=== PATIENT | female | born 1945 | race Caucasian/White ===

== ENCOUNTER 2016-12-20 20:20 | Inpatient (IN) | payer MEDICARE, OTHER ==
[~2016-12-20] VITALS: Ht 149.9 cm; Wt 72.1 kg
--- NOTE | ~2016-12-20 | ECH ---
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 The estimated left ventricular ejection fraction is 60%. Diastolic assessment reveals Grade I diastolic dysfunction. Informed consent was obtained, bubble study was done, there is no evidence for a PFO or ASD. Mild tricuspid regurgitation by color Doppler. There is moderate pulmonary hypertension. The pulmonary pressure (RVSP) is 52 mmHg. Procedure Type of Study TTE procedure:Echo Complete SF. Procedure Date Date: 12/23/2016 Start: 08:25 AM Technical Quality: Adequate visualization Indications:Abnormal ECG, CVA, Hypertension and Coronary artery disease. Additional Indications:History of stent Appropriate Use Criteria: 9 Height: 59 inches Weight: 156 pounds BSA: 1.66 m Rhythm: NSR HR: 69 bpm BP: 140/57 mmHg M-Mode/2D Measurements LV Diastolic Dimension: 4.3 cm LV Systolic Dimension: 3.5 cm LV Septum Diastolic: 0.87 cm LV PW Diastolic: 0.87 cm AO Root Dimension: 2.98 cm Cardiac Output: 6.8 l/min LA Dimension: 3.73 cm Cardiac Index: 4.1 l/min*m RV Diastolic Dimension: 3.55 cm LA volume index: 28 ml/m LVOT: 2.06 cm LVOT VTI: 29.6 cm RV Base: 3.5 cm LV Stroke volume: 98.6 ml RV Mid: 2.8 cm LV Stroke volume index: 59.4 ml/m TAPSE: 2.9 cm TDI-S': 18 cm/s Doppler Measurements AV Peak Velocity: 1.27 m/s MV Peak E-Wave: 0.84 m/s AV Peak Gradient: 6.49 mmHg MV Peak A-Wave: 1 m/s AV Mean Gradient: 3.1 mmHg MV E/A Ratio: 0.84 LVOT Peak Velocity: 1.17 m/s AV Area (Continuity):3.47 cm MV Deceleration Time: 202 msec TR Velocity:3.45 m/s TR Gradient:47.61 mmHg Estimated PASP: 52.61 mmHg Estimated RAP:5 mmHg A' Septal Velocity: 0.1 m/s Estimated RVSP: 53 mmHg A' Lateral Velocity: 0.14 m/s E' Septal Velocity: 0.1 m/s E' Lateral Velocity: 0.12 m/s RA Area: 14.47 cm Findings Left Ventricle Normal left ventricle size and function. Diastolic assessment reveals Grade I diastolic dysfunction. Right Ventricle Normal right ventricle structure and function. Left Atrium Normal left atrial size. Informed consent was obtained, bubble study was done, there is no evidence for a PFO or ASD. Right Atrium Normal right atrial size. Mitral Valve Mild mitral annular calcification. Mild mitral regurgitation by color Doppler. Aortic Valve The aortic valve is mildly sclerotic. Tricuspid Valve Normal tricuspid valve structure and function. Mild tricuspid regurgitation by color Doppler. There is moderate pulmonary hypertension. The pulmonary pressure (RVSP) is 52 mmHg. Pulmonic Valve The pulmonic valve is not well visualized. Pericardial Effusion No evidence of pericardial effusion. Miscellaneous Visualized portions of the aortic root and ascending aorta appear normal in size. Pleural Effusion No evidence of pleural effusion. Signature
--- NOTE | ~2016-12-20 | CO ---
ADMIT: 12/20/2016 RM/LOC: 308 [facility] MR#: [id number] [address] [address] TERI [place] [address] Consultation SEX: F AGE: 71 : 1945 DATE OF CONSULTATION: 12/23/2016 ATTENDING PHYSICIAN: Denice Brice CONSULTING PHYSICIAN: Jon Liu MD REASON FOR CONSULTATION: Seizure activity, potentially stroke. HISTORY OF PRESENT ILLNESS: The patient is a 71-year-old woman, who was admitted status post seizure at home that could last for about 2 to 3 minutes, generalized tonic-clonic in nature. She had another episode while in the CT scan when she was evaluated in the ER. The second spell was witnessed by ER nurse. She was then admitted to the hospital for further evaluation. The first CT scan of her head was unremarkable. As there was no MRI available, the CT scan was obtained again, repeated, and it was interpreted by radiologist with decreased attenuation in the operculum portion of the RIGHT parietal lobe suggesting a subacute infarct. Then, final MRI of the brain was obtained this morning, and it showed LEFT PARIETAL LOBE with small area of increased diffusion signal intensity probably representing a subacute infarct. The patient was started on Keppra which she takes now 500 mg twice daily, and she has remained seizure free so far. PAST MEDICAL HISTORY: The patient is a severe vasculopath having history of bilateral carotid endarterectomies, and then she had restenosis this year and underwent placement of a stent into the right carotid artery. She has been on aspirin and Plavix throughout. She has a history of coronary artery disease, status post stent to the mid obtuse marginal artery. She has peripheral vascular disease with auto bifemoral bypass. She has a history of some breast lump, anemia, hip fracture, cataracts, rheumatoid arthritis, right shoulder replacement, hyperlipidemia, and hypertension. ALLERGIES: SHE IS ALLERGIC TO LATEX AND SULFA. MEDICATIONS: Current medications on an outpatient basis reviewed in detail, present in electronic medical record. FAMILY HISTORY: Positive for history of stroke in the father and mother. SOCIAL HISTORY: She is a former smoker. Denies any alcohol use. REVIEW OF SYSTEMS: All systems reviewed, negative except as per HPI and past medical history. PHYSICAL EXAMINATION: VITAL SIGNS: Temperature 97.4, heart rate 78, respirations 22, blood pressure 147/57, saturation 91% on room air. GENERAL: The patient is in no acute discomfort. HEENT: Head is normocephalic. NECK: Supple. ADMIT: 12/20/2016 RM/LOC: 308 [facility] MR#: [id number] [facility] [address] [address] [place] [address] Consultation SEX: F AGE: 71 : 1945 CHEST: Normal respiratory rises. CARDIOVASCULAR: Regular rate and rhythm. ABDOMEN: Soft and nondistended. EXTREMITIES: No clubbing or cyanosis. NEUROLOGICAL EXAMINATION: The patient is awake, alert, and appropriately oriented. Speech and language are normal. Fund of knowledge normal. Memory intact. She is euthymic. Affect is congruent with mood. Cranial nerves; visual mccord are intact. Pupils are equal, reactive. Extraocular muscles are intact. Facial sensation is normal. Face is symmetric. Hearing to voice intact. Normal palatal arches symmetric. Uvula midline. Shoulder shrug is symmetric. Tongue is midline, fairly moveable. Motor examination reveals full strength throughout. Nonfocal fine motor movements intact. Tone is normal. Sensory nonlateralizing to touch. Reflexes brisk, upper extremity reflexes and symmetric. Symmetric and brisk knees, reduced ankle reflexes bilaterally. Toes are downgoing bilaterally. Coordination; [id number] intact. Gait deferred. Blood work reviewed in details in electronic medical record. I reviewed the MRI, and I am not completely persuaded. There is in fact ischemic lesion. I do think that this is a shine through artifact in the left parietal occipital junction. ASSESSMENT: 1. New-onset seizures. 2. White matter changes. 3. Vasculopath. 4. Hypertension. 5. Hyperlipidemia. PLAN: I completely agree with Patsy as an excellent choice in regard to her medication she is on. EEG preliminary report, normal study. Discussed driving limitation for next 3 months. In regard to the MRI and CT, both of them were interpreted as showing ischemic lesion on completely opposite side of the brain. I am under the impression that the change that is seen in the left parietal occipital junction is a part of her shine through. I do not think that there is correlation to it. In any case, if this was a small ischemic lesion, it is more so focal not embolic. She is a vasculopath and she is to maximize medical therapy. Currently, I would not recommend to do any changes in this regard. Thank you very much for this interesting consultation. We will follow. Jon Liu MD/ robert JOB #: [id number] CC: Denice Brice, Attending Physician ADMIT: 12/20/2016 RM/LOC: [address] [place] [address] MR#: [id number] [address] [address] [place] [address] Consultation SEX: F AGE: 71 : 1945 Denice Brice, Family Physician
--- NOTE | ~2016-12-20 | HP ---
ADMIT: 12/20/2016 RM/LOC: 308 [facility] MR#: [id number] [address] [address] [place] [address] History and Physical SEX: F AGE: 71 : 1945 DATE OF SERVICE: CHIEF COMPLAINT: Seizure activity. HISTORY OF PRESENT ILLNESS: Sandi is a 71-year-old white female with history of COPD, hypertension, and carotid artery stenosis, who was at home with her when she was noted to have seizure-like activity. It occurred while she was sitting. Lasted for just about 2-3 minutes according to her spouse. There was no previous history of head trauma or medication changes. Afterwards, she was a little confused and postictal. She does not have a seizure history. She was brought into the emergency room, where she underwent a CAT scan of her head. At that time, she had another episode witnessed by the ER nurse, who confirmed it was tonic-clonic behavior and suggestive of a seizure. She was noted to have saturations of 88% when she arrived to the emergency room and there was question if that might not be contributing a little bit. The CAT scan itself was normal. We are not able to get an MRI at this time as we have a portable unit and she requires monitoring. Also, she is not able to comply with lying down for the study. She does have a history of severe carotid artery stenosis bilaterally. She had a left carotid endarterectomy in November of 2010. She has had a right carotid endarterectomy x2 with the most recent being earlier this year. She was seen by [facility] on December 16, 2016, and actually had been doing very well from her carotid standpoint. She is admitted at this time for further investigation of her probable new onset seizure and etiology. Unfortunately, at this time, we do not have Neurology coverage. PAST MEDICAL HISTORY: 1. Lumbar spine stenosis, status post spinal fusion with posterior interbody technique, 01/28/2014. 2. Osteoarthritis. 3. Depression. 4. Osteoporosis. 5. History of breast cancer, left breast, 2008, status post lumpectomy, chemo, and radiation. 6. Seropositive rheumatoid arthritis. 7. GERD - primarily diet related. 8. Bilateral peripheral neuropathy of bilateral lower extremities, takes Neurontin for this. 9. Coronary artery disease, status heart cath 11/30/2010 with left main okay, LAD 40%, OM1 30% and mid 90%, status post stent to OM1 on 12/03/2010, echo most recent 04/09/2015, nuclear stress test 09/06/2016 with mild anterior abnormality. 10.Peripheral vascular disease, status post aorto-fem bypass graft, 02/24/2010. 11.Carotid artery disease, status post right CEA 09/14/2010, left CEA 12/03/2010, angiogram and stent of distal common carotid 10/29/2016 and placed on Plavix per Dr. Cox. 12.Chronic back pain. 13.Sleep apnea. ADMIT: 12/20/2016 RM/LOC: 308 [facility] MR#: [id number] [address] [place] [address] [place] [address] History and Physical SEX: F AGE: 71 : 1945 14.COPD. 15.Bilateral lower extremity edema. 16.Glaucoma. 17.Hypertension. 18.Hyperlipidemia. 19.Lumbar spine stenosis. 20.Osteopenia. 21.Vitamin D deficiency. 22.History of avascular necrosis of the humeral head. 23.Cholecystectomy. 24.Right shoulder replacement, 07/02/2011. 25.Tonsillectomy in 1948. MEDICATIONS: On admit: 1. Plavix 75 mg daily. 2. Pepcid 20 p.o. b.i.d. 3. Lipitor 40 mg daily. 4. Cymbalta 60 mg daily. 5. Toprol-XL 50 mg b.i.d. 6. Latanoprost 0.005% one drop both eyes at bedtime. 7. Gabapentin 600 q.i.d. 8. Potassium 20 mEq daily. 9. Lasix 40 mg daily. 10.Thyroid 50 mcg daily. 11.Methotrexate 2.5, four tabs once weekly. 12.Ventolin HFA two puffs q.4h p.r.n. 13.Fentanyl patch 50 mcg every 72 hours. 14.Prednisone 5 mg 1/2 pill daily. 15.Lutein b.i.d. 16.Aspirin 81 mg b.i.d. 17.Mucinex ER 600 b.i.d. p.r.n. 18.Folic acid 1 b.i.d. 19.Metamucil t.i.d. p.r.n. 20.Colace 100 mg b.i.d. p.r.n. 21.Claritin 10 mg daily p.r.n. 22.Vitamin D 1000 International Units daily. 23.Aleve 220 every 6 hours p.r.n. per record. 24.Acidophilus daily. 25.Vitamin B12 at 100 mcg daily. 26.Prolia every 6 months. 27.Spiriva daily. 28.PreserVision with lutein, two pills daily. 29.BiPAP per home settings. ALLERGIES: SULFA, HIVES; LATEX, RASH. SOCIAL HISTORY: She is . She is a former smoker at two packs a day for 50 years and quit on 01/06/2012. She does not drink. 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 FAMILY HISTORY: Mother had hyperlipidemia and arthritis. Father with rheumatoid arthritis and a stroke. REVIEW OF SYSTEMS: Very confused when she arrived to the hospital. Has been clearing as time has gone on. Unable to give a lot of history at that time. PHYSICAL EXAMINATION: VITAL SIGNS: Blood pressure 121/56, pulse 76, respirations 16, temp 98.6. GENERAL: This is a well-developed, well-nourished white female, whose affect is appropriate. SKIN: Warm and dry. No rashes. HEENT: Normocephalic, atraumatic. Anicteric. Mucous membranes are moist. NECK: Supple. LUNGS: Diminished, but clear. No rhonchi or wheezing. CARDIOVASCULAR: Regular without murmur or gallop. ABDOMEN: Soft. /RECTAL: Deferred. EXTREMITIES: With trace edema. NEUROLOGIC: No focal deficit. Initially, she was unable to answer questions but she is beginning to clear. ASSESSMENT: 1. New onset seizure-like activity. 2. Carotid artery disease, status post multiple surgeries in the past. 3. Probable stroke. 4. Hypertension. 5. Osteoarthritis. 6. Peripheral neuropathy. 7. Hypothyroid. 8. Elevated troponin on lab. DISCUSSION: Not sure why she would have had a stroke. I am concerned that she has had a CVA, but that is concerning on Plavix and just having had her carotids done. We will look and see from cardiology perspective if she has had a bubble study. MRI would be beneficial. We will do a follow-up CT scan ADMIT: 12/20/2016 RM/LOC: 308 [facility] MR#: [id number] [address] [place] [phone] [place] [address] History and Physical SEX: F AGE: 71 : 1945 for now and see if anything has changed. If not, we will work towards getting an MRI once stable. PLAN: 1. Therapy. 2. CT of the head to evaluate symptoms. 3. Consider MRI. 4. IV Keppra for now and then change to oral with outpatient Neurology's appointment. 5. See chart. Denice Brice MD/ robert JOB #: [id number] CC: Denice Brice, Attending Physician Denice Brice, Family Physician Álvaro Jones MD
[~2016-12-20 20:20] MED LIST: ASA PR; CALCIUM600 MG PO; CLARITIN DPS10 MG PO; COLACE-DPS100 MG PO; CYMBALTA DPS60 MG PO; DELTASONE DPS5 MG PO; FOLIC ACID1 MG PO; FUROSEMIDE40 MG PO; IMODIUM DPS2 MG PO; KLOR-CON M2020 ME1 PO; LIPITOR40 MG PO; LOPRESSOR DPS50 MG PO; LUTEIN1 GM PO; METAMUCIL FIBE3.4 GM PO; METHOTREXATE2.5 MG PO; MUCINEX600 MG PO; NEURONTIN600 MG PO; PEPCID20 MG PO; SLO-BID DPS300 MG PO; SYNTHROID50 MCG PO; TRUSOPT 2% DPS10 ML OU; TYLENOL325 MG; TYLENOL325 MG PO; ULTRAM50 MG PO; VITAMIN D1000 UNI1 PO; XALATAN2.5 ML OU; XARELTO10 MG PO
--- NOTE | 2016-12-21 19:29 | ER ---
ADMIT: 12/20/2016 RM/LOC: 308 [facility] MR#: [id number] [address] [address] [place] [address] Emergency Room Report SEX: F AGE: 71 : 1945 DATE: 12/20/2016 HISTORY OF PRESENT ILLNESS: The patient is a 71-year-old female with a past medical history of COPD, breast cancer, hypertension, arthritis, came to the ER with chief complaint of shortness of breath and seizure-like activity. Per spouse, the patient had generalized shakiness for 2 to 3 minutes while she was sitting and after that, she was confused for about 10 minutes. Spouse denies any fall or head trauma or using any drugs or new medications. The patient and the spouse did deny any seizure activity in the past. Per spouse, the patient is still confused after the seizure, which happened tonight. PHYSICAL EXAMINATION: VITAL SIGNS: In the ER, the patient was afebrile, blood pressure was normal, and the rest of the vitals are noncontributory. In the ER, the patient had O2 saturation of 88% on room air, which was put on O2- Max mask of 2 L, which increased the saturation to mid 90s. GENERAL: The patient was slightly confused, but after repetition of question, she would answer the questions. She was oriented to person, place, time, and situation. Per spouse, she was also confused. HEENT: In the head and neck, pupils are 3 mm, reactive to light bilaterally with normal extraocular movement. There is no tongue deviation. Trachea is midline. There is no bruit in the neck. CHEST: Has mild wheezing bilaterally without any crackles. HEART: Normal S1, S2 heart sounds without any murmurs. ABDOMEN: Soft and nontender. EXTREMITIES: There is no swelling or tenderness in lower extremities. The rest of the physical exam was noncontributory. LABORATORY DATA AND IMAGING: EKG did not show any ST or T changes or arrhythmia. Cardiac enzymes were also negative. Chest x-ray did not show any new acute changes. CT of the brain was negative for any active bleeding or space-occupying lesions. WBC was 7.5, with hemoglobin of 14.3. Urine was positive for 4 wbc and 308 rbc. The patient received a dose of Zosyn in the ADMIT: 12/20/2016 RM/LOC: 308 [facility] MR#: [id number] [address] [address] [place] [address] Emergency Room Report SEX: F AGE: 71 : 1945 ER. Lactic acid was 1.8. The patient on the CT scan of the brain, had another seizure activity and also received 1 mg of Ativan. The seizure activity was generalized and it was clonic and it lasted about a minute and after that, the patient was postictal, confused. Prolactin level was 10.5, after the 2nd seizure activity. Also, the patient had no motor and sensory deficits and the rest of neuro exam during her stay here did not change and was not contributory and was negative. The patient had elevated D-dimer of 5.[address] angiogram of the chest was negative for PE. The patient came out of the postictal gradually. Internal Medicine was consulted and the patient was admitted for UTI, new-onset seizure, hypoxia, altered mental status. Michael Mireles MD/ robert JOB #: [id number] CC: Denice Brice MD, Attending Physician Denice Brice MD, Family Physician
--- NOTE | 2016-12-22 14:41 | CO ---
ADMIT: 12/20/2016 RM/LOC: 308 [facility] MR#: [id number] [address] [address] [place] [address] Consultation SEX: F AGE: 71 : 1945 DATE OF CONSULTATION: 12/21/2016 ATTENDING PHYSICIAN: Denice Brice CONSULTING PHYSICIAN: Álvaro Jones MD REASON FOR CONSULTATION: Elevated troponin. HISTORY OF PRESENT ILLNESS: Sandi is a 71-year-old female, with extensive vascular history status post two prior right carotid endarterectomies and a left carotid endarterectomy. She on October 29, had restenosis of her right carotid artery and underwent stent placement and has been on aspirin and Plavix. Since that time, she was actually just seen on December 16 five days ago and her carotid duplex showed a patent stent and she was reportedly taking the Plavix. She also has history of coronary artery disease with prior obtuse marginal stenting in 2010. No family is present, but she was brought to the emergency room last night after she had 2 to 3 minutes where she had generalized shakiness. She was confused for about 10 minutes afterwards. There was no fall, trauma, and no illicit drug use or abnormal activities. She has had no history of seizures. She was still confused, so presented to the emergency room. There, she was noted to be mildly hypoxic at 88%. She underwent evaluation with an EKG that showed no specific changes. She underwent a CT of her head that showed no active bleeding, but while in the CT scanner, she had another event of shaking for a couple minutes and became hypoxic. She again was then confused and postictal afterwards. She had an elevated D-dimer also and had a CT angiogram that was negative for PE. She was admitted to the ICU for further evaluation. Currently, she is not oriented and cannot really give me any history or symptoms. PAST MEDICAL HISTORY: 1. Extensive history of carotid artery disease with prior right carotid endarterectomy x2 and a left carotid endarterectomy most recently, within a right carotid stent on October 29, 2016. 2. History of coronary disease status post stent to her mid obtuse marginal one with a bare metal stent in November of 2010. 3. History of peripheral vascular disease status post aortobifemoral bypass. 4. History of a mildly abnormal stress test in September 2016 with mild apical ischemia treated medically. 5. History of hip fracture. 6. History of anemia and blood transfusion in 2010. 7. History of breast cancer with lumpectomy, radiation, and chemotherapy. 8. History of cataracts. 9. History of COPD. 10.History of glaucoma. 11.History of D and C. 12.History of tonsillectomy. 13.History of cholecystectomy. 14.History of right shoulder replacement. 15.History of rheumatoid arthritis. ADMIT: 12/20/2016 RM/LOC: 308 [facility] MR#: [id number] [address] [place] [id number] [place] [address] Consultation SEX: F AGE: 71 : 1945 16.History of urinary tract infection. 17.History of vitamin D deficiency. 18.Hyperlipidemia. 19.Hypertension. ALLERGIES: TO LATEX AND SULFA. CURRENT MEDICATIONS: She is on: 1. Albuterol p.r.n. 2. Aspirin 81 mg daily. 3. Atorvastatin 40 mg daily. 4. Vitamin B12 daily. 5. Calcium twice a day. 6. Dorzolamide eyedrops three times a day. 7. Duloxetine 60 mg daily. 8. Fentanyl patch every 72 hours. 9. Folic acid 1 mg twice a day. 10.Gabapentin 600 mg two tabs twice a day. 11.Lasix 40 mg daily. 12.Latanoprost eye drops q. evening. 13.Methotrexate one tab every 12 hours for three doses given as a course once weekly. 14.Multivitamin daily. 15.Plavix 75 mg daily. 16.Potassium 20 mEq three times a day. 17.Prednisone 5 mg one-half tab daily. 18.Prolia every six months. 19.Theophylline 300 mg daily. 20.Tirosint 25 mcg daily. 21.Tizanidine 4 mg q. evening. 22.Toprol 50 mg daily. FAMILY HISTORY: Family history of stroke in father and mother. Colon cancer in uncles and grandmother. SOCIAL HISTORY: She lives with her . She is . Former smoker. Denies any alcohol use. Does not use caffeine, sedentary life style. She eats a regular diet. She has one child. REVIEW OF SYSTEMS: Unable to obtain given the patient's confusion. PHYSICAL EXAMINATION: VITAL SIGNS: Blood pressure 127/59, pulse 82, respirations 24, temperature 97.3, and oxygen 95% on 2 L. GENERAL: She is confused as she is not oriented to time or place. She is oriented to person. HEENT: Normocephalic and atraumatic. Moist mucous membranes. NECK: Supple. No lymphadenopathy. There is no carotid bruits auscultated. JVP is normal. ADMIT: 12/20/2016 RM/LOC: [address] [place] [address] MR#: [id number] [address] [place] [id number] [place] [address] Consultation SEX: F AGE: 71 : 1945 CHEST: Clear to auscultation bilaterally. HEART: Regular rate and rhythm. There is a soft 2/6 systolic ejection murmur. ABDOMEN: Soft, nontender, and nondistended. EXTREMITIES: Shows no cyanosis, clubbing, or edema. PSYCHIATRIC: She is disoriented not oriented to place or time. NEUROLOGIC: Cranial nerves II through XII intact. She is able to follow commands. She is able to move all 4 extremities. DIAGNOSTIC DATA: EKG showed sinus rhythm with nonspecific EKG changes. CT of the head was negative for any bleeding. CTA was negative for PE. Troponin was 0.185. CK was normal at 71. MB was 1.9, creatinine 1.1. IMPRESSION AND RECOMMENDATIONS: 1. Indeterminate troponin. This appears most likely secondary to her seizure activity and hypoxia and demand ischemia. She has no EKG changes. We will check serial cardiac enzymes and check an echocardiogram. 2. Delirium. 3. Seizure-like activity. 4. Possible stroke. 5. Carotid occlusive disease, status post right carotid stent in October 29, 2016 with a recent carotid duplex on December 16, 2014 showing patent stent. 6. History of Crohn disease status post stent to her obtuse marginal in 2010. 7. History of mildly abnormal stress test on September 06, 2016. We will follow along. She does not appear to have an acute coronary syndrome at this point, but we will check serial cardiac enzymes. Check an echocardiogram. We will defer further workup of her seizure versus stroke evaluation to Dr. Brice. Álvaro Jones MD/ robert EDIT: 12/22/2016 [email or web address] / norma JOB #: [id number] CC: Denice Brice, Attending Physician Denice Brice, Family Physician
[2016-12-25] MEDS ORDERED: PLAVIX75 MG PO (13:02)
[2016-12-25] MEDS ORDERED: DURAGESIC1 EAC1 TD (13:10)
[2016-12-25] MEDS ORDERED: DUONEB DPS3 ML IH (13:11)
[2016-12-25] MEDS ORDERED: PROAIR RESPICL90 MCG IH (13:11)
[2016-12-25] MEDS ORDERED: CIPRO DPS250 MG PO (13:11)
[2016-12-25] MEDS ORDERED: KEPPRA DPS500 MG/51 IV (13:11)
--- NOTE | 2016-12-30 01:22 | DS ---
ADMIT: 12/20/2016 RM/LOC: 308 [facility] MR#: [id number] [address] [address] [place] [address] Discharge Summary SEX: F AGE: 71 : 1945 ADMISSION DATE: 12/20/2016 DISCHARGE DATE: 12/24/2016 DISCHARGE DIAGNOSES: 1. New onset seizure, tonic-clonic. 2. Vascular disease with history of carotid disease and with recent stent of right carotid 10/29/2016. 3. Urinary tract infection, Proteus mirabilis, low colony count. 4. Elevated troponin secondary to hypoxia and demand ischemia. 5. Severe COPD (chronic obstructive pulmonary disease). 6. Severe obstructive sleep apnea. 7. Hypertension. 8. Hyperlipidemia. 9. Chronic back pain. 10.Coronary artery disease. DISCHARGE MEDICATIONS: Please refer to discharge medication list. She will be going home on Keppra 500 mg twice daily. ADDITIONAL DISCHARGE INSTRUCTIONS: Additional discharge instructions include she is to not drive for three months (per neurology recommendations). Continue BiPAP as at home when sleeping. Regular diet. Follow up with Avis Curry in two weeks. Follow up with Dr. Liu per his office. CONSULTANTS: 1. Álvaro Jones M.D., Cardiology, 12/21/2016, consulted regarding elevated troponin. 2. Jon Liu MD, Neurology, 12/23/2016, consulted for procedure with potential stroke. HOSPITAL COURSE: A 71-year-old, female who resides at home. She had an episode of seizure-like activity at home, presented to the Emergency Room for further evaluation where she had another tonic-clonic seizure. She has no prior history of seizure. While in the Emergency Room, she was found have mild hypoxia with 02 saturation of 88%. Please refer to history and physical for complete details regarding admission. She has a history of significant vascular disease including peripheral vascular disease, carotid artery disease, and coronary artery disease. She had a left carotid endarterectomy November of 2010. She also has a right carotid artery disease, has had intervention in the past, most recent intervention with a stent placement on 10/29/2016 with [facility]. She has been on aspirin and Plavix since, had not missed any doses of the medication. Initial evaluation in the Emergency Room, evaluated her for sepsis, this evaluation was negative. Blood cultures were obtained which were negative. Initial CT of the head in the Emergency Room was unremarkable. Troponin was found to be slightly elevated at 0.185, cardiology was consulted. Serial cardiac enzymes were obtained. Initial troponin was 0.185 followed by 0.274, then 0.084. Echocardiogram was obtained showing a normal ejection fraction with diastolic dysfunction, moderate pulmonary hypertension, no regional wall motion abnormalities, no PFO or ASD. ADMIT: 12/20/2016 RM/LOC: 308 [facility] MR#: [id number] [address] [place] [phone] [place] [address] Discharge Summary SEX: F AGE: 71 : 1945 It was felt that the elevated troponin was secondary to myocardial strain, seizure, and mild hypoxia. She was continued on her aspirin and Plavix therapy. For the seizure she was started on Keppra, admitted to the Intensive Care Unit, and placed on telemetry. Follow-up CT of the head was done on 12/21 as patient had some confusion. This CT of the head showed decreased attenuation in the upper portion of the right parietal lobe suggesting a subacute infarct. Neurology was consulted. Patient had no further seizure-like activity. She was continued on her BiPAP as at home. Due to the hypoxia and her history of severe COPD, she was started on IV steroids and DuoNeb. She was also on , this was later weaned off. At the time of admission, she also had a UTI, was started on IV Zosyn, urine culture was positive with a low colony count for Proteus mirabilis. On 12/23, she was doing well, activity increased. IV Solu-Medrol was discontinued. She was changed to oral steroids. Neurology evaluated the patient. She had an MRI done, which showed a possible left parietal lobe small area of increased diffusion signal intensity likely represented a subacute infarct. Brain imaging scan review by Neurology, it was felt that the changes seen in the left parietal lobe on the MRI is likely shine through. She has no extremity weakness or focal neurological deficits. She was dismissed home on 12/23 in stable condition. LABORATORY AND X-RAY DATA: See lab summary for complete details. Radiology please see radiology per report for complete details. EDIT: 12/26/2016 1517 ajf Avis Curry APRN / Denice Brice MD / neil JOB #: [id number] CC: Denice Brice MD, Attending Physician Denice Brice MD, Family Physician MD Álvaro Bergman MD
--- NOTE | 2016-12-30 11:03 | EEG ---
ADMIT: 12/20/2016 RM/LOC: 308 [facility] MR#: [id number] [address] [address] [place] [address] Inpatient EEG SEX: F AGE: 71 : 1945 DATE: 12/23/2016 EEG NUMBER: [id number]. The patient is a 71-year-old woman with new onset seizures. The patient is currently on Keppra during the recording. This is a routine 21 channel digital EEG recording performed on awake patient and who was cooperative. The study is performed using the 10/20 international electrode placement system. During wakefulness, the background activity is fairly well organized, consisting of regular and symmetrical medium amplitude activity up to 9 Hz, which is seen posteriorly and attenuates with eye opening. In addition, moderate amount of low-amplitude fast activity is seen anteriorly. There were no focal slowing's nor epileptiform discharges seen in this recording. Hyperventilation was not performed secondary to cardiac and cerebrovascular history. Photic stimulation performed at 1-33 Hz frequency, elicited bilateral occipital driving response. IMPRESSION: This is normal awake EEG recording. Note normal EEG does not rule out existence of seizure disorder. Clinical correlation is suggested. COMMENT: Normal cardiac rhythm is noted throughout this recording. Jon Liu MD/ robert JOB #: [id number] CC: Denice Brice MD, Attending Physician Denice Brice MD, Family Physician
[2017-03-25] MEDS ORDERED: COLACE-DPS100 MG PO (13:30)
[2017-03-25] MEDS ORDERED: LOVENOX DP40 MG/0.4 SQ (13:31)
[2017-03-25] MEDS ORDERED: NYSTATIN CREAM15 GM TP (13:32)
[2017-03-25] MEDS ORDERED: NORMAL SALINE FL5 ML IV (13:34)
[2017-03-25] MEDS ORDERED: [UNRECOGNIZED DRUG - OTHER] IV (13:35)
[2017-03-25] MEDS ORDERED: SOLU-CORTEF100 MG IV (13:35)
[2017-03-25] MEDS ORDERED: ATIVAN2 MG/1 ML IV (13:36)
== END 2016-12-24 11:24 | disposition home or self-care (01) | DRG 101 ==
LOC: ER 20:20 → 3ICU 23:05
PROVIDERS: ADMIT Internal Medicine
PROC: 4A10X4Z Monitoring of Central Nervous Electrical Activity, External Approach (ICD-10-PCS; principal; 2016-12-23)
DX: G40.909 Epilepsy, unspecified, not intractable, without status epilepticus (principal); F05 Delirium due to known physiological condition; I24.8 Other forms of acute ischemic heart disease; N39.0 Urinary tract infection, site not specified; R90.89 Other abnormal findings on diagnostic imaging of central nervous system; B96.4 Proteus (mirabilis) (morganii) as the cause of diseases classified elsewhere; R09.02 Hypoxemia; J44.9 Chronic obstructive pulmonary disease, unspecified; M06.9 Rheumatoid arthritis, unspecified; G57.93 Unspecified mononeuropathy of bilateral lower limbs; I10 Essential (primary) hypertension; E78.5 Hyperlipidemia, unspecified; I73.9 Peripheral vascular disease, unspecified; G47.33 Obstructive sleep apnea (adult) (pediatric); M48.06 Spinal stenosis, lumbar region; H40.9 Unspecified glaucoma; E55.9 Vitamin D deficiency, unspecified; E03.9 Hypothyroidism, unspecified; M85.80 Other specified disorders of bone density and structure, unspecified site; I25.10 Atherosclerotic heart disease of native coronary artery without angina pectoris; K21.9 Gastro-esophageal reflux disease without esophagitis; M19.90 Unspecified osteoarthritis, unspecified site; F32.9 Major depressive disorder, single episode, unspecified; M81.0 Age-related osteoporosis without current pathological fracture; Z85.3 Personal history of malignant neoplasm of breast; Z98.1 Arthrodesis status; Z96.611 Presence of right artificial shoulder joint; Z79.82 Long term (current) use of aspirin; Z87.891 Personal history of nicotine dependence; Z95.5 Presence of coronary angioplasty implant and graft

== ENCOUNTER 2017-03-23 03:50 | Inpatient (IN) | payer MEDICARE, OTHER ==
[~2017-03-23] VITALS: Ht 149.9 cm; Wt 68.0 kg
[~2017-03-23 03:50] MED LIST changes: +CIPRO DPS250 MG PO; +DUONEB DPS3 ML IH; +DURAGESIC1 EAC1 TD; +KEPPRA DPS500 MG/51 IV; +PLAVIX75 MG PO; +PROAIR RESPICL90 MCG IH
--- NOTE | 2017-03-23 20:11 | ER ---
ADMIT: 03/23/2017 RM/LOC: 312 [facility] MR#: [id number] [address] [address] [place] [address] Emergency Room Report SEX: F AGE: 71 : 1945 DATE: 03/23/2017 CHIEF COMPLAINT: Altered level of consciousness. HISTORY OF PRESENT ILLNESS: The patient is a 71-year-old female with new diagnosis of seizure disorder and recent stroke, hospitalized from December 20 through with similar presentation. states for the past 3 days, she has been slightly confused. No witnessed seizure until tonight, approximately 2:30, had tonoclonic seizure lasting 30 seconds, transported by private auto with another seizure en route and one shortly after arrival, witnessed by this care provider. ALLERGIES: LATEX AND SULFA. MEDICATIONS: Please see nurse's MAR. ILLNESSES: Severe peripheral vascular disease, coronary artery disease, CHF, type 2 diabetes with peripheral neuropathy, chronic back pain, hyperlipidemia, hypertension, DJD, osteoporosis, breast cancer, left breast status post chemoradiation, rheumatoid arthritis, prednisone and methotrexate dependent, GERD, obstructive sleep apnea, COPD, glaucoma, hypothyroidism, UTI, and seizure disorder. OPERATIONS: Right total shoulder arthroplasty, cataract with intraocular lens implant, cholecystectomy, tonsillectomy, D and C, aortobifemoral bypass, PCI stent in 2010, right carotid artery stent on October 29, 2016, bilateral carotid endarterectomies, and lumpectomy of left breast. SOCIAL HISTORY: Past smoker over [id number], quit in 2011. 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 FAMILY HISTORY: Negative per chart review. REVIEW OF SYSTEMS: Unavailable due to altered level of consciousness. PHYSICAL EXAMINATION: VITAL SIGNS: Temp 99.1, pulse 87, respirations 18, BP 179/77, and SaO2 of 98% on 4 L. GENERAL: Lethargic, obtunded, and postictal. HEENT: Normocephalic. No evidence of epistaxis, rhinorrhea, or otorrhea. NECK: Supple without lymphadenopathy or thyromegaly. CHEST: Clear. Breath sounds equal without rales, rhonchi, or wheeze. HEART: Regular rate and rhythm without murmur, gallop, or edema. ABDOMEN: Soft, obese, nontender, and nondistended without mass or organomegaly. Bowel sounds are hypoactive. EXTREMITIES: No evidence of Homans sign, synovitis, or dermatitis. NEURO: Postictal, witnessed seizure preceded by head and eyes deviated upward to the right, brief tonic-clonic seizure. MEDICAL DECISION MAKING: The patient was two person full assist out of car, ADMIT: 03/23/2017 RM/LOC: 312 [facility] MR#: [id number] [address] [address] [place] [address] Emergency Room Report SEX: F AGE: 71 : 1945 incontinent of urine, postictal. Within 10 minutes of arrival, had tonic- clonic seizure, treated with Ativan 1 mg IV push, Keppra [address] head shows no acute findings. Chest x-ray, negative. Normal CBC and CMP. Creatinine 1.2, lactic 3.8, D-dimer 5.36, troponin 0.022. ETOH 4. ABGs 4 L, pH 7.4, pCO2 of 54, and PO2 107. Chest x-ray unremarkable. EKG shows sinus rhythm with left axis deviation, low voltage, poor R-wave progression, nonspecific ST changes similar to December 23. Discussed findings with Dr. Encinas, who is in agreement. Requests ICU to call for orders. Due to the patient's presentation findings and intervention, 30 minutes of critical care is warranted. DIAGNOSES: 1. Seizure disorder. 2. Severe peripheral vascular disease. 3. Coronary artery disease. RECOMMENDATION: Admit to inpatient ICU for Dr. Brice. DISCHARGE CONDITION: Stable. The patient is a full code. Joaquin Mattson MD/ robert JOB #: [id number] CC: Denice Brice MD, Attending Physician Denice Brice MD, Family Physician Denice Brice MD
[2017-03-25] MEDS ORDERED: COLACE-DPS100 MG PO (13:30)
[2017-03-25] MEDS ORDERED: LOVENOX DP40 MG/0.4 SQ (13:31)
[2017-03-25] MEDS ORDERED: NYSTATIN CREAM15 GM TP (13:32)
[2017-03-25] MEDS ORDERED: NORMAL SALINE FL5 ML IV (13:34)
[2017-03-25] MEDS ORDERED: [UNRECOGNIZED DRUG - OTHER] IV (13:35)
[2017-03-25] MEDS ORDERED: SOLU-CORTEF100 MG IV (13:35)
[2017-03-25] MEDS ORDERED: ATIVAN2 MG/1 ML IV (13:36)
--- NOTE | 2017-03-28 12:32 | HP ---
ADMIT: 03/23/2017 RM/LOC: 312 [facility] MR#: [id number] [address] [address] TERI, [place] [address] History and Physical SEX: F AGE: 71 : 1945 DATE OF SERVICE: CHIEF COMPLAINT: Altered level of consciousness. HISTORY OF PRESENT ILLNESS: This is a 71-year-old female. She has a diagnosis of a seizure disorder on her recent hospitalization. She was hospitalized on the through the with a similar presentation. At that time, she was diagnosed with stroke. For the last 3 days, she had been slightly confused. No witnessed seizure until tonight. Approximately, 2:30 in the morning, she had a tonoclonic seizure last about 30 seconds. She was transported by private auto. She had another seizure en route and one shortly after arrival witnessed by the ER. She was given IV Keppra and 2 mg of Ativan. Since that time, the patient has been mostly unresponsive. Other workup was normal except for lactic acid of 3.8. PAST MEDICAL HISTORY: Includes coronary artery disease, peripheral vascular disease, carotid artery stenosis status post carotid endarterectomies on the right in 2009 and on the left in 2010. She had a stent inserted with side, but it was October 2016. She has lumbar spinal stenosis, rheumatoid arthritis, depression, osteoporosis, history of breast cancer, left breast in 2008, status post lumpectomy, chemo and radiation. She had seropositive rheumatoid arthritis. She has GERD, bilateral peripheral neuropathy, sleep apnea. Currently, uses BiPAP. 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 Other surgeries include cholecystectomy and tonsillectomy. HOME MEDICATIONS: Unknown at this point. I did review her discharge list from 3 months ago. She was on: 1. Plavix. 2. Methotrexate. 3. Prednisone. SOCIAL HISTORY: She is . She is a former smoker two packs a day for 50 years, quit 2011. Currently, no drinking. Works at [employer]. FAMILY HISTORY: Mother had high cholesterol and arthritis. Father with rheumatoid arthritis and stroke. REVIEW OF SYSTEMS: Complete review of systems unobtainable given patient's unresponsiveness. PHYSICAL EXAMINATION: VITAL SIGNS: Temp 98.8, pulse 75, respirations 15, blood pressure 161/62, oxygen saturation 98% on 4 L of oxygen by nasal cannula. GENERAL: This is an elderly appearing 71-year-old female. She is in no apparent distress. She appears to be resting comfortably. HEENT: Pupils about 4 mm bilaterally. They are reactive. A little bit ADMIT: 03/23/2017 RM/LOC: 312 [facility] MR#: [id number] [address] [address] [place] [address] History and Physical SEX: F AGE: 71 : 1945 sluggish to the leftward gaze deviation. She does bite me pretty quickly with opening her eyes. She did arouse a little bit with some physical stimulation. No response to verbal stimulation. Her throat is clear. NECK: Supple. Trachea is midline. Thyroid is not palpable. HEART: Regular rate and rhythm. LUNGS: Diminished with faint crackles bilaterally. ABDOMEN: Soft without any signs of tenderness. Normal bowel sounds. EXTREMITIES: Lower extremities, right lower extremity has 2+ edema. Left lower extremity, 1+ edema. She has compression stockings in place. She cannot follow commands. Left side of her arm has some increased tone. Right arm seems fairly flaccid. I cannot elicit movement out of that one. It should be noted, she is lying on her right side at this time, and I cannot really get her turned over. LABORATORY AND X-RAY DATA: She had an elevated lactic acid when she came in at 3.8. Otherwise labs were okay. CT scan of her head was nonacute. No changes on chest x-ray or head CT. Urine was normal as well. ASSESSMENT: 1. Seizures. 2. Mental status change. 3. Questionable new stroke. 4. Elevated lactic acid. 5. Peripheral vascular disease. 6. Coronary artery disease. 7. Rheumatoid arthritis. 8. Chronic prednisone. PLAN: She may have had a new stroke. We will continue her on Keppra at a little higher dose and Ativan as needed. She is not having any epileptic activity right now. We need to check an EEG to rule out status epilepticus. We will get an MRI when appropriate all with acute stroke orders. Continue Plavix and aspirin for now. We will give her a little IV hydrocortisone in case she is a little adrenal insufficient even though she has some low-dose prednisone. Miguel Encinas MD/ robert JOB #: [id number] CC: Denice Brice, Attending Physician Denice Brice, Family Physician
--- NOTE | 2017-04-20 23:14 | DS ---
ADMIT: 03/23/2017 RM/LOC: 312 [facility] MR#: [id number] [address] [address] TERI [place] [address] General Discharge Summary SEX: F AGE: 71 : 1945 ADMISSION DATE: 03/23/2017 DISCHARGE DATE: 03/24/2017 HOSPITAL COURSE: The patient was admitted through the emergency room on March 23, she presented with an altered level of consciousness. As she had been diagnosed with a new-onset seizure disorder a few months ago, she is on Keppra at home. She has been taking her medication regularly, there was some concern that she had a stroke with the initial onset of seizure as imaging showed a questionable stroke. She had carotid stenting several weeks prior to that episode. On the , she had another tonic-clonic seizure at home, they then transported her to the hospital, en route she had another seizure and another seizure again in the emergency room. She was given IV Keppra, her seizures did cease. She had confusion. She was admitted to the ICU for further evaluation. She was hydrated with IV fluids, n.p.o. She was given Lovenox for VTE prophylaxis. Continued on IV Keppra. Also given Ativan as needed for seizure activity. She had been on Plavix 75 mg daily at home as well as aspirin, these medications were continued. An EEG and MRI were ordered for the following morning. On morning of the , she was alert, she still had confusion and difficulty following commands. Unclear the cause of her seizures. Due to her known vascular disease and recent seizures, she ultimately was transferred to [facility] in [place] for further evaluation and treatment by Neurology and Vascular. Neurology services were not available at the time of the patient's hospitalization. LABORATORY DATA: See lab summary for complete details. RADIOLOGY: CT of the head on March 23 showed age-related chronic small vessel disease. No acute findings. Avis Edwards APRN / Denice Brice MD / robert JOB #: [id number] CC: Denice Brice MD, Attending Physician Denice Brice MD, Family Physician
== END 2017-03-24 12:06 | disposition short-term general hospital (02) | DRG 101 ==
LOC: ER 03:50 → 3ICU 06:12
PROVIDERS: ADMIT Internal Medicine
DX: G40.909 Epilepsy, unspecified, not intractable, without status epilepticus (principal); I50.9 Heart failure, unspecified; E11.42 Type 2 diabetes mellitus with diabetic polyneuropathy; I11.0 Hypertensive heart disease with heart failure; E11.51 Type 2 diabetes mellitus with diabetic peripheral angiopathy without gangrene; I25.10 Atherosclerotic heart disease of native coronary artery without angina pectoris; M06.9 Rheumatoid arthritis, unspecified; E03.9 Hypothyroidism, unspecified; J44.9 Chronic obstructive pulmonary disease, unspecified; I73.9 Peripheral vascular disease, unspecified; M48.06 Spinal stenosis, lumbar region; E55.9 Vitamin D deficiency, unspecified; F32.9 Major depressive disorder, single episode, unspecified; H40.9 Unspecified glaucoma; G47.33 Obstructive sleep apnea (adult) (pediatric); K21.9 Gastro-esophageal reflux disease without esophagitis; E78.5 Hyperlipidemia, unspecified; M19.90 Unspecified osteoarthritis, unspecified site; M81.0 Age-related osteoporosis without current pathological fracture; Z85.3 Personal history of malignant neoplasm of breast; Z79.52 Long term (current) use of systemic steroids; Z96.611 Presence of right artificial shoulder joint; Z95.5 Presence of coronary angioplasty implant and graft; Z87.891 Personal history of nicotine dependence; Z86.73 Personal history of transient ischemic attack (TIA), and cerebral infarction without residual deficits